=== PATIENT | female | born 1975 | race Caucasian/White ===

== ENCOUNTER 2017-05-05 08:32 | Emergency (ER) | payer BC ==
--- NOTE | 2017-05-05 09:11 | ED ---
General Adult HPI - General Chief complaint: Extremity Injury, Lower Stated complaint: Fall Time Seen by Provider: 05/05/17 08:59 Source: patient, RN notes reviewed Mode of arrival: ambulatory Limitations: no limitations - History of Present Illness Initial comments: Patient 42-year-old female presenting to the emergency room today with chief complaint of injury to the left even occurred yesterday. She states she missed the last step when she went down her balance falling onto the left knee. She admits to pain and some swelling locally. Patient does admit that it feels worse with flexion. Patient denies any head injury or loss conscious. She admits to some bruising to the right knee but states that feels fine. She denies any other complaints currently. Patient denies any recent fever, chills, shortness of breath, chest pain, back pain, abdominal pain, nausea or vomiting, headaches or visual changes, or any other complaints. - Related Data Home Medications Medication Instructions Recorded Confirmed ALPRAZolam [Xanax] 0.25 mg PO DAILY PRN 05/05/17 05/05/17 FLUoxetine HCL [FLUoxetine HCL] 60 mg PO DAILY 05/05/17 05/05/17 Olmesartan/Hydrochlorothiazide 1 tab PO DAILY 05/05/17 05/05/17 [Olmesartan-Hctz 20-12.5 mg Tab] Ranitidine HCl [Zantac] 150 mg PO BID 05/05/17 05/05/17 medroxyPROGESTERone [Depo-Provera] 150 mg IM Q90D 05/05/17 05/05/17 Allergies Allergy/AdvReac Type Severity Reaction Status Date / Time sulfamethoxazole Allergy Unknown Verified 05/05/17 09:26 [From Bactrim] trimethoprim [From Bactrim] Allergy Unknown Verified 05/05/17 09:26 acetaminophen [From Vicodin] AdvReac Nausea & Verified 05/05/17 09:26 Vomiting azithromycin AdvReac Nausea & Verified 05/05/17 09:26 Vomiting hydrocodone [From Vicodin] AdvReac Nausea & Verified 05/05/17 09:26 Vomiting Review of Systems ROS Statement: Those systems with pertinent positive or pertinent negative responses have been documented in the HPI. ROS Other: All systems not noted in ROS Statement are negative. Past Medical History Past Medical History: GERD/Reflux, Hypertension History of Any Multi-Drug Resistant Organisms: None Reported Additional Past Surgical History / Comment(s): Brest Reduction, Past Psychological History: Anxiety, Depression Smoking Status: Never smoker Past Alcohol Use History: None Reported Past Drug Use History: None Reported General Exam - General Exam Comments Initial Comments: General: The patient is awake and alert, in no distress, and does not appear acutely ill. Neck: The neck is supple, there is no tenderness or JVD. Cardiovascular: There is a regular rate and rhythm. No murmur, rub or gallop is appreciated. Respiratory: Lungs are clear to auscultation, respirations are non-labored, breath sounds are equal. No wheezes, stridor, rales, or rhonchi. Musculoskeletal: Patient does have some mild swelling with a small effusion to the left knee. She shows good range of motion. Able to extend flexion is minus 10:15 degrees. She is tender over the anterior aspect. Does have tenderness with both valgus and varus stress. Her sensations are intact. Pulses equal bilaterally 2+. Neurological: A&O x 3. CN II-XII intact, There are no obvious motor or sensory deficits. Coordination appears grossly intact. Speech is normal. Skin: Skin is warm and dry and no rashes or lesions are noted. Psychiatric: Normal mood and affect. Limitations: no limitations Course Vital Signs 05/05/17 08:42 Temperature 97.0 F L Pulse Rate 94 Respiratory 18 Rate Blood Pressure 135/79 O2 Sat by Pulse 97 Oximetry Medical Decision Making - Medical Decision Making Patient's x-rays reviewed and does show possible patellar fracture. Patient will be placed in knee immobilizer to protect versus ligamentous injury. She is advised to follow-up with orthopedics over the next 2 days. Advised return here to the emergency room for any symptoms increase or worsen. Disposition Clinical Impression: Patellar fracture Disposition: HOME SELF-CARE Condition: Good Instructions: Patellar Fracture (ED) Additional Instructions: Please continue to ice elevate the affected area use knee immobilizer up and around follow-up with orthopedics over the next 2 days. Please return to emergency room if the symptoms increase or worsen or for any other concerns. Referrals: Nonstaff,Physician [REFERRING] - 1-2 days Gerry Lipscomb DO [Doctor of Osteopathic Medicine] - 1-2 days Time of Disposition: 10:22
--- NOTE | 2017-05-05 09:28 | XR ---
EXAMINATION TYPE: XR knee 4V LT DATE OF EXAM: 05/05/2017 CLINICAL HISTORY: Left knee pain following fall TECHNIQUE: Three views of the left knee are obtained. COMPARISON: None. FINDINGS: There is indistinct cortical border of the medial facet of the patella which could relate t o an impaction fracture. There is also subtle medial subluxation of the patella on the sunrise view w ith the patellar apex located along the medial trochlea. Mild soft tissue swelling is also seen near the medial retinaculum. The remainder of the osseous structures are intact. Otherwise the tri-compart ment joint spaces appear within normal limits. IMPRESSION: Cortical irregularity of the medial patellar facet with slight medial subluxation and sof t tissue swelling over the medial retinaculum may represent subtle impaction fracture and/or osseous contusion. MRI could be performed to evaluate for retinacular tear and/or osseous contusion. Remainde r the osseous structures of the left knee appear intact.
[2017-05-05 10:28] VITALS: BP 134/89; PULSE 87; RESP 16; TEMP 99.7
== END 2017-05-05 10:57 | disposition home or self-care (01) ==
LOC: EC 08:32
DX: S82.002A Unspecified fracture of left patella, initial encounter for closed fracture (principal); S80.01XA Contusion of right knee, initial encounter; K21.9 Gastro-esophageal reflux disease without esophagitis; I10 Essential (primary) hypertension; F41.9 Anxiety disorder, unspecified; F32.9 Major depressive disorder, single episode, unspecified; Z79.52 Long term (current) use of systemic steroids; Z79.899 Other long term (current) drug therapy; Z88.1 Allergy status to other antibiotic agents; Z88.2 Allergy status to sulfonamides; Z88.5 Allergy status to narcotic agent; W10.9XXA Fall (on) (from) unspecified stairs and steps, initial encounter
CPT/HCPCS: 99283